=== PATIENT | male | born 2000 | race Caucasian/White ===

== ENCOUNTER 2022-04-08 19:58 | Emergency (ER) | payer OTHER, SELFPAY ==
[2022-04-08 20:46] VITALS: BP 116/78; PULSE 110; RESP 16; TEMP 37.1; O2SAT 97; BMI 21.9
[2022-04-08] MEDS: ONDANSETRON 4 MG ODT SL (20:53)
[2022-04-08 21:51] LABS: Influenza A - CEPHEID Flu A NEGATIVE (NEGATIVE); Influenza B - CEPHEID Flu B NEGATIVE (NEGATIVE); Respiratory Syncytial Virus Negative (Negative)
[2022-04-08 21:57] LABS: COVID-19 CEPHEID 4-PLEX PCR POSITIVE (Negative)
== END 2022-04-08 23:08 | disposition left against medical advice (07) ==
PROVIDERS: Emergency Provider Emergency Medicine
DX: U07.1 COVID-19 (principal)
CPT/HCPCS: 0241U; 99283